=== PATIENT | male | born 1980 | race African-American/Black ===

== ENCOUNTER 2017-02-17 03:55 | Emergency (ER) | payer BC ==
[~2017-02-17] VITALS: Ht 172.7 cm; Wt 72.6 kg
[2017-02-17 04:13] LABS: BASO % 1 % (0-3); EOS % 3 % (0-3); HEMATOCRIT 41.9 % (39.0-53.0); HEMOGLOBIN 14.3 g/dL (13.0-17.5); LYMPH # 1.8 x10^3/uL (1.0-4.8); LYMPH % 27 % (24-48); MEAN CORPUSCULAR HEMOGLOBIN 32 pg (25-35); MEAN CORPUSCULAR HGB CONC 34 g/dL (31-37); MEAN CORPUSCULAR VOLUME 92 fL (79-100); MONO % 7 % (0-9); NEUT % 63 % (31-73); PLATELET COUNT 246 x10^3/uL (140-400); RED BLOOD COUNT 4.55 x10^6/uL (4.30-5.70); RED CELL DISTRIBUTION WIDTH 13.2 % (11.5-14.5); WHITE BLOOD COUNT 6.5 x10^3/uL (4.0-11.0)
[2017-02-17 04:24] LABS: CALCIUM 9.2 mg/dL (8.5-10.1); CREATININE 0.9 mg/dL (0.7-1.3); GFR 114.3; POTASSIUM 3.5 mmol/L (3.5-5.1)
[2017-02-17 04:30] LABS: TOTAL BILIRUBIN 0.6 mg/dL (0.2-1.0)
--- NOTE | 2017-02-17 04:49 | PHYS DOC ---
Past Medical History Past Medical History: No Pertinent History Past Surgical History: Appendectomy, Tonsillectomy Alcohol Use: Occasionally Drug Use: None Adult General Chief Complaint Chief Complaint: CHEST PAIN HPI HPI Patient is a 36 year old gentleman who presents here today complaining of sharp left-sided chest pain. Patient denies any past medical history of hypertension diabetes family history tobacco or high cholesterol. Patient reports he is not interactive. Patient reports that he's had this pain several times over the last couple weeks. Patient reports that he would see his doctor earlier today and had a negative workup. Patient portion x-ray and blood test drawn which were all normal. Patient has any fevers shakes chills nausea vomiting diarrhea. Patient denies any cough cold runny nose. Patient reports that he started experiencing left-sided sharp pain that started earlier tonight and got concerned so came to the ER. Patient denies any diaphoresis. Patient denies any shortness of breath. Patient has any pain radiating to his neck jaw or back. Patient reports pain is nonexertional and occurred while he was just sleeping. Patient's physical exam is unremarkable the ER at this time. Patient's heart was regular rate and rhythm. Lungs were clear. Abdomen was soft nontender no rebound or guarding. Patient does have reproducible tenderness to palpation to his left anterior chest wall. Patient's ER workup has been unremarkable. Patient's EKG revealed normal sinus rhythm with nonspecific ST-T wave abnormalities. There was no evidence of ST elevation SD. Patient's labs were all within normal limits. Patient has a normal troponin. Patient's chest x-ray was within normal limits. Assessment and plan this is a 36-year-old gentleman who presents to the ER today with atypical chest pain. I had a long discussion with the patient and his regarding his risk factors. I believe that the patient currently is at low risk for coronary artery disease. Patient understands that this is not no risk. I have recommended to the patient that we admitted to the hospital for further evaluation of his chest pain however the patient currently reports he has no pain and does not wish to be admitted. Utilizing shared decision making I have recommended to the patient that if he does decide to go home that he will need to follow-up with his primary care doctor for an outpatient stress test. Patient and his both understands that I have not been able to rule out a cardiac etiology of his chest pain. He understands abdominal able to rule out any life-threatening causes. They do understand that his risk stratification does present with a low risk setting again they do understand that he is not no risk and that there is a risk to being discharged home which includes . Patient was offered admission multiple times and he reports that he would prefer to be discharged home and to follow-up with his primary care doctor for further evaluation and management of his chest discomfort. I will respect the patient's wishes and will defer to his judgment given that he has the capacity were decision making and is competent to make his own decisions. Review of Systems Review of Systems Constitutional: Denies fever or chills [] Eyes: Denies change in visual acuity, redness, or eye pain [] All other review systems are negative except as documented in the history of present illness portion. Allergies Allergies Allergies Coded Allergies Type Severity Reaction Last Updated Verified No Known Drug Allergies 02/17/17 No Physical Exam Physical Exam Constitutional: Well developed, well nourished, no acute distress, non-toxic appearance. [] HENT: Normocephalic, atraumatic, bilateral external ears normal, oropharynx moist, no oral exudates, nose normal. [] Eyes: PERRLA, EOMI, conjunctiva normal, no discharge. [] Neck: Normal range of motion, no tenderness, supple, no stridor. [] Cardiovascular:Heart rate regular rhythm, Lungs & Thorax: Bilateral breath sounds clear to auscultation [] Abdomen: Bowel sounds normal, soft, no tenderness, no masses, no pulsatile masses. [] Skin: Warm, dry, no erythema, no rash. [] Back: No tenderness, no CVA tenderness. [] Extremities: No tenderness, no cyanosis, no clubbing, ROM intact, no edema. [] Neurologic: Alert and oriented X 3, normal motor function, normal sensory function, no focal deficits noted. [] Psychologic: Affect normal, judgement normal, mood normal. [] Current Patient Data Vital Signs Vital Signs Date Time Temp Pulse Resp B/P (MAP) Pulse Ox O2 Delivery O2 Flow Rate FiO2 02/17/17 04:55 73 134/80 (98) 73 Room Air 02/17/17 04:29 16 02/17/17 03:58 98.6 98.6 Lab Values Laboratory Tests Test 02/17/17 04:05 White Blood Count 6.5 x10^3/uL (4.0-11.0) Red Blood Count 4.55 x10^6/uL (4.30-5.70) Hemoglobin 14.3 g/dL (13.0-17.5) Hematocrit 41.9 % (39.0-53.0) Mean Corpuscular Volume 92 fL (79-100) Mean Corpuscular Hemoglobin 32 pg (25-35) Mean Corpuscular Hemoglobin Concent 34 g/dL (31-37) Red Cell Distribution Width 13.2 % (11.5-14.5) Platelet Count 246 x10^3/uL (140-400) Neutrophils (%) (Auto) 63 % (31-73) Lymphocytes (%) (Auto) 27 % (24-48) Monocytes (%) (Auto) 7 % (0-9) Eosinophils (%) (Auto) 3 % (0-3) Basophils (%) (Auto) 1 % (0-3) Neutrophils # (Auto) 4.1 x10^3uL (1.8-7.7) Lymphocytes # (Auto) 1.8 x10^3/uL (1.0-4.8) Monocytes # (Auto) 0.5 x10^3/uL (0.0-1.1) Eosinophils # (Auto) 0.2 x10^3/uL (0.0-0.7) Basophils # (Auto) 0.0 x10^3/uL (0.0-0.2) Sodium Level 141 mmol/L (136-145) Potassium Level 3.5 mmol/L (3.5-5.1) Chloride Level 103 mmol/L (98-107) Carbon Dioxide Level 29 mmol/L (21-32) Anion Gap 9 (6-14) Blood Urea Nitrogen 10 mg/dL (8-26) Creatinine 0.9 mg/dL (0.7-1.3) Estimated GFR (Cockcroft-Gault) 114.3 BUN/Creatinine Ratio 11 (6-20) Glucose Level 90 mg/dL (70-99) Calcium Level 9.2 mg/dL (8.5-10.1) Total Bilirubin 0.6 mg/dL (0.2-1.0) Aspartate Amino Transferase (AST) 26 U/L (15-37) Alanine Aminotransferase (ALT) 16 U/L (16-63) Alkaline Phosphatase 91 U/L (46-116) Troponin I Quantitative < 0.017 ng/mL (0.000-0.055) Total Protein 8.0 g/dL (6.4-8.2) Albumin 4.0 g/dL (3.4-5.0) Albumin/Globulin Ratio 1.0 (1.0-1.7) Laboratory Tests 02/17/17 04:05 Laboratory Tests 02/17/17 04:05 EKG EKG [] Radiology/Procedures Radiology/Procedures [] Course & Med Decision Making Course & Med Decision Making Pertinent Labs and Imaging studies reviewed. (See chart for details) [] Dragon Disclaimer Dragon Disclaimer This electronic medical record was generated, in whole or in part, using a voice recognition dictation system. Departure Departure Impression: Primary Impression: Nonspecific chest pain Disposition: HOME, SELF-CARE Condition: STABLE Referrals: POPEYE MARTINEZ (PCP) Patient Instructions: Chest Pain (Nonspecific) Additional Instructions: Please return to the ER if you change your mind regarding wanting to be admitted to the hospital. Please follow up with her primary care physician for further evaluation and outpatient stress test. DONOVAN MCLEOD MD Feb 17, 2017 04:49
[2017-02-17 04:55] VITALS: BP 134/80
--- NOTE | 2017-02-17 04:55 | EKG ---
[facility] [address] [place] [address] Test Date: 2017-02-17 Test Time: 03:58:56 Pat Name: HEBERT MCNEIL Department: Room: Gender: M [employer]: : 1980 Requested By: DONOVAN MCLEOD Order Number: [id number] Reading MD: Measurements Intervals [place] Rate: 74 P: 43 NH: 160 QRS: 24 QRSD: 86 T: 22 QT: 378 QTc: 425 Interpretive Statements SINUS RHYTHM NORMAL ECG RI6.01 Unconfirmed report No previous ECG available for comparison
--- NOTE | 2017-02-17 07:51 | RAD ---
Indication chest pain. A single view of the chest was obtained. No prior imaging of the chest is available. The heart and pulmonary vessels appear normal. The lungs are clear. There is no pleural fluid or pneumothorax. Bony structures appear unremarkable. IMPRESSION: No acute or focal process is seen in the chest
== END 2017-02-17 04:57 | disposition home or self-care (01) ==
LOC: ER 03:55
DX: R07.89 Other chest pain (principal); Z90.49 Acquired absence of other specified parts of digestive tract
CPT/HCPCS: 36415; 71010; 80053; 84484; 85027; 93005; 99285-25

== ENCOUNTER 2021-05-20 14:46 | Emergency (ER) | payer BC ==
[~2021-05-20] VITALS: Ht 172.7 cm; Wt 89.9 kg
[2021-05-20 15:19] VITALS: BP 145/90
[2021-05-20] MEDS ORDERED: IBUP-1007 PO ×2 (15:59→16:17)
[2021-05-20] MEDS ORDERED: CYCL5TAB PO ×2 (15:59→16:17)
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
== END 2021-05-20 16:29 | disposition home or self-care (01) ==
LOC: ER 14:46
DX: S29.012A Strain of muscle and tendon of back wall of thorax, initial encounter (principal); V89.2XXA Person injured in unspecified motor-vehicle accident, traffic, initial encounter; Y93.89 Activity, other specified; Y92.89 Other specified places as the place of occurrence of the external cause; Y99.8 Other external cause status
CPT/HCPCS: 99283